=== PATIENT | female | born 1980 | race Caucasian/White ===

== ENCOUNTER 2016-11-18 00:44 | Emergency (ER) | payer OTHER ==
[2016-11-18 00:53] LABS: BASOPHIL 0.5 % (0-2); EOSINOPHIL 1.8 % (0-5); HCT 43.5 % (37.0-47.0); LYMPHOCYTE 20.9 % (15-48); MCH 31.3 pg (25.0-31.0); MCHC 34.5 g/dL (32.0-36.0); MCV 90.6 fL (78.0-100.0); MONOCYTE 10.8 % (0-12); MPV 8.9 fL (6.0-9.5); PLT 315 K/uL (150-400); RDW 13.7 % (11.5-14.0); WBC 11.5 K/uL (4.0-10.5)
[2016-11-18 01:10] LABS: ALBUMIN 4.3 g/dL (3.5-5.0); BILIRUBIN - TOTAL 0.2 mg/dL (0.1-1.0); CREATININE 0.7 mg/dL (0.5-1.0); GLOBULIN (CALCULATION) 2.8 g/dL (2.2-4.2); POTASSIUM 4.3 mmol/L (3.5-5.1); TOTAL PROTEIN 7.1 g/dL (6.4-8.3)
[2016-11-18 01:12] LABS: CKMB 2.95 ng/mL (0.97-4.94); TROPONIN T < 0.010 ng/mL
== END 2016-11-18 01:57 | disposition home or self-care (01) ==
LOC: FER 00:44
PROVIDERS: Emergency Medicine Emergency Medical Services
DX: F41.9 Anxiety disorder, unspecified (principal); F17.210 Nicotine dependence, cigarettes, uncomplicated; Z88.1 Allergy status to other antibiotic agents; Z79.899 Other long term (current) drug therapy
CPT/HCPCS: 36415; 71010; 80053; 82550; 82553; 84484; 85025; 93005

== ENCOUNTER → 2017-01-02 | Day surgery (SDC) | payer OTHER | END | disposition home or self-care (01) | LOC: FAS 08:19 | DX: M23.222 Derangement of posterior horn of medial meniscus due to old tear or injury, left knee (principal); M17.12 Unilateral primary osteoarthritis, left knee; M25.862 Other specified joint disorders, left knee; M23.42 Loose body in knee, left knee; K21.9 Gastro-esophageal reflux disease without esophagitis; F41.9 Anxiety disorder, unspecified; F17.210 Nicotine dependence, cigarettes, uncomplicated; Z88.6 Allergy status to analgesic agent; Z88.1 Allergy status to other antibiotic agents; Z79.1 Long term (current) use of non-steroidal anti-inflammatories (NSAID); Z79.899 Other long term (current) drug therapy | CPT/HCPCS: 84703; J2704; J3010 ==